=== PATIENT | male | born 1995 | race African-American/Black ===

== ENCOUNTER 2017-03-15 12:49 | Emergency (ER) | payer SELFPAY ==
[~2017-03-15] VITALS: Ht 175.3 cm; Wt 89.9 kg
[2017-03-15 13:00] VITALS: BP 124/77
== END 2017-03-15 15:22 | disposition left against medical advice (07) ==
LOC: ED 12:49
DX: Z53.21 Procedure and treatment not carried out due to patient leaving prior to being seen by health care provider (principal)